=== PATIENT | male | born 1970 | race Caucasian/White ===

== ENCOUNTER 2017-07-12 01:57 | Emergency (ER) | payer OTHER ==
[2017-07-12 02:32] VITALS: PULSE 90; TEMP 98; BMI 33.7
[2017-07-12] MEDS ORDERED: PHENYLEPHRINE 0.25% NASAL SPRAY 15 ML BOTTLE NS ONE (02:59)
--- NOTE | 2017-07-12 03:40 | PDOC ---
History of Present Illness - General Chief Complaint: Nasal Bleeding Stated Complaint: NOSEBLEED Time Seen by Provider: 07/12/17 02:26 History Source: Patient Exam Limitations: No Limitations - History of Present Illness Initial Comments: 07/12/17 03:32 Patient is a 46-year-old male with history of hypertension, GI bleeding from gastric ulcer, here with c/o nosebleed intermittently times one week. He has been able to control the bleeding each time however this morning at 0100 while resting the bleeding started again and he was not able to control with pressure so has presented here for evaluation. Denies any injury to the nose. States he does a lot of heavy lifting for work. He thought it might be related to his pressure. States he had had a couple of beers yesterday. Denies any headache, chest pain, nausea, vomiting. PMHX: as above PSOCHX: occ etoh, (-) cig, (-) drug ALL: NKDA GENERAL/CONSTITUTIONAL: [No fever or chills. No weakness. No weight change.] HEAD, EYES, EARS, NOSE AND THROAT: [No change in vision. No ear pain or discharge. No sore throat.] CARDIOVASCULAR: [No chest pain or shortness of breath.] RESPIRATORY: [No cough, wheezing, or hemoptysis.] GASTROINTESTINAL: [No nausea, vomiting, diarrhea or constipation. No rectal bleeding.] GENITOURINARY: [No dysuria, frequency, or change in urination.] MUSCULOSKELETAL: [No joint or muscle swelling or pain. No neck or back pain.] SKIN AND BREASTS: [No rash or easy bruising.] NEUROLOGIC: [No headache, vertigo, loss of consciousness, or loss of sensation.] PSYCHIATRIC: [No depression or anxiety.] ENDOCRINE: [No increased thirst. No abnormal weight change.] HEMATOLOGIC/LYMPHATIC: [No anemia, easy bleeding, or history of blood clots.] ALLERGIC/IMMUNOLOGIC: [No hives or skin allergy. No latex allergy.] GENERAL: [The patient is awake, alert, and fully oriented, in no acute distress. ] HEAD: [Normal with no signs of trauma.] EYES: [Pupils equal, round and reactive to light, extraocular movements intact, sclera anicteric, conjunctiva clear.] ENT: [Ears normal, (+) blood pumping from a small vessel in the left anterior septum, no bleeding in the oropharynx , clear without exudates. Moist mucous membranes.] NECK: [Normal range of motion, supple without lymphadenopathy, JVD, or masses.] LUNGS: [Breath sounds equal, clear to auscultation bilaterally. No wheezes, and no crackles.] HEART: [Regular rate and rhythm, normal S1 and S2 without murmur, rub.] ABDOMEN: [Soft, nontender, normoactive bowel sounds. No guarding, no rebound. No masses.] EXTREMITIES: [Normal range of motion, no edema. No clubbing or cyanosis. No cords, erythema, or tenderness.] NEUROLOGICAL: [Cranial nerves II through XII grossly intact. Normal speech, normal gait.] PSYCH: [Normal mood, normal affect.] SKIN: [Warm, Dry, normal turgor, no rashes or lesions noted.] Past History - Past Medical History Allergies/Adverse Reactions: Allergies Allergy/AdvReac Type Severity Reaction Status Date / Time No Known Allergies Allergy Verified 07/12/17 02:30 Home Medications: Ambulatory Orders Ascorbic Acid [Vitamin C] 500 mg PO BID #0 tablet 11/25/12 Enalapril Maleate [Vasotec -] 10 mg PO DAILY #0 tablet 11/25/12 Ferrous Sulfate 325 mg PO BID #0 tablet 11/25/12 Pantoprazole Sodium [Protonix] 40 mg PO DAILY #30 tablet. 11/25/12 Clindamycin [Cleocin -] 300 mg PO Q6HPO #20 capsule 07/12/17 COPD: No HTN: Yes - Suicide/Smoking/Psychosocial Hx Smoking Status: Yes Smoking History: Never smoked Have you smoked in the past 12 months: No Number of Cigarettes Smoked Daily: 0 If you are a former smoker, when did you quit?: August 2012 Information on smoking cessation initiated: No 'Breaking Loose' booklet given: 11/22/12 Hx Alcohol Use: No Drug/Substance Use Hx: No Substance Use Type: Alcohol Hx Substance Use Treatment: No *Physical Exam - Vital Signs Last Vital Signs Temp Pulse Resp BP Pulse Ox 98.0 F 90 20 170/109 100 07/12/17 01:58 07/12/17 01:58 07/12/17 01:58 07/12/17 01:58 07/12/17 01:58 ED Treatment Course - Medications Given in the ED: ED Medications Discontinued Medications Generic Name Dose Route Start Last Admin Trade Name Tova PRN Reason Stop Dose Admin Phenylephrine HCl 1 spray 07/12/17 02:59 07/12/17 03:21 Michael-Synephrine 0.25% Nasal [place] - NS 07/12/17 03:00 1 spray ONCE ONE Administration Medical Decision Making - Medical Decision Making 07/12/17 03:32 Patient is a 46-year-old male with history of hypertension, GI bleeding from gastric ulcer, here with c/o nosebleed intermittently times one week consistent with arteriole bleeding. Bleeding not controlled with pressure, a michael-synephrine packing applied to the left nare. 07/12/17 03:46 Bleeding resolved. We'll discharge with packing and instructed to ENT in 2 days for packing removal. Selected Entries 07/12/17 03:57 Blood Pressure 157/100 [Right Arm] I discussed the physical exam findings, ancillary test results and final diagnoses with the patient. I answered all of the patient's questions. The patient was satisfied with the care received and felt comfortable with the discharge plan and treatment plan. The Patient agrees to follow up with the primary care physician within 24-72 hours. *DC/Admit/Observation/Transfer Diagnosis at time of Disposition: Epistaxis - Discharge Dispostion Disposition: HOME Condition at time of disposition: Stable - Prescriptions Prescriptions: Clindamycin [Cleocin -] 300 mg PO Q6HPO #20 capsule - Referrals Referrals: Michael Shannon MD [Staff Physician] - - Patient Instructions Printed Discharge Instructions: DI for Nosebleed - Post Discharge Activity Forms/Work/School Notes: Back to Work
[2017-07-12 03:57] VITALS: BP 157/100
[2017-07-12] MEDS ORDERED: CLINDAMYCIN HCL 150 MG CAPSULE (FP) PO ONE (03:58)
[2017-07-12] MEDS ORDERED: CLINDAMYCIN HCL 150 MG CAPSULE (FP) ONE (04:01)
== END 2017-07-12 04:19 | disposition home or self-care (01) ==
LOC: JER 01:57
PROC: 2Y41X5Z Packing of Nasal Region using Packing Material (ICD-10-PCS; principal; 2017-07-12)
DX: R04.0 Epistaxis (principal); I10 Essential (primary) hypertension
CPT/HCPCS: 99281-25

== ENCOUNTER 2023-03-08 04:20 | Day surgery (SDC) | payer OTHER ==
[2023-03-03 08:40] VITALS: BMI 30.7
[2023-03-08 10:59] VITALS: RESP 15
[2023-03-08 11:24] VITALS: BP 116/81; PULSE 73; TEMP 97.5
== END 2023-03-08 11:50 | disposition home or self-care (01) ==
LOC: JASU-ENDO 04:20
PROVIDERS: ATTEND Internal Medicine Gastroenterology
PROC: 0DB98ZX Excision of Duodenum, Via Natural or Artificial Opening Endoscopic, Diagnostic (ICD-10-PCS; 2023-03-08)
PROC: 0DB78ZX Excision of Stomach, Pylorus, Via Natural or Artificial Opening Endoscopic, Diagnostic (ICD-10-PCS; 2023-03-08)
PROC: 0DB68ZX Excision of Stomach, Via Natural or Artificial Opening Endoscopic, Diagnostic (ICD-10-PCS; 2023-03-08)
PROC: 0DB48ZX Excision of Esophagogastric Junction, Via Natural or Artificial Opening Endoscopic, Diagnostic (ICD-10-PCS; 2023-03-08)
PROC: 0DBP8ZX Excision of Rectum, Via Natural or Artificial Opening Endoscopic, Diagnostic (ICD-10-PCS; principal; 2023-03-08 10:15)
DX: Z12.11 Encounter for screening for malignant neoplasm of colon (principal); D12.8 Benign neoplasm of rectum; K29.50 Unspecified chronic gastritis without bleeding; K21.00 Gastro-esophageal reflux disease with esophagitis, without bleeding; K44.9 Diaphragmatic hernia without obstruction or gangrene; I10 Essential (primary) hypertension; E11.9 Type 2 diabetes mellitus without complications; Z79.84 Long term (current) use of oral hypoglycemic drugs
CPT/HCPCS: 82962; 88305-TC; 88312-TC; 88342-TC